=== PATIENT | female | born 1980 | race Caucasian/White ===

== ENCOUNTER → 2016-12-22 | Outpatient (CLI) | payer BC ==
[2016-12-22 10:20] LABS: CHLORIDE,CL 109 mmol/L (98-110); SODIUM,NA 142 mmol/L (136-146)
== END ==
LOC: MW.CHFP 09:14
PROVIDERS: ATTEND Physician Assistant
DX: Z00.00 Encounter for general adult medical examination without abnormal findings (principal); R53.83 Other fatigue
CPT/HCPCS: 36415; 80048; 80061; 83036; 84439; 84443; 84481; 85025

== ENCOUNTER → 2016-12-23 | Outpatient (CLI) | payer BC | LOC: MW.CHFP 08:42 | PROVIDERS: ATTEND Physician Assistant | DX: H53.9 Unspecified visual disturbance (principal) | CPT/HCPCS: 36415; 84445; 86376; 86800 ==

== ENCOUNTER → 2017-01-03 | Outpatient (CLI) | payer BC ==
[~2017-01-03] MED LIST: Gadobenate Dimeglumine 529 MG/ML 20 ML SDV IV ONE
--- NOTE | 2017-01-03 12:54 | US ---
EXAMINATION: Carotid US with mann scale and duplex imaging. HISTORY: Visual disturbance FINDINGS: Ultrasound examination of bilateral cervical carotid arteries was performed using mann scale and dup kevin imaging. No significant atheromatous plaque identified. Antegrade flow is noted within the emily tebral arteries. These are the peak velocities in cm per second (systole), right and left respectively, by a comma: CCA (common carotid artery) - 100, 103 ICA (internal carotid artery) - 115, 95 ECA (External carotid artery) - 106, 85 ICA/CCA systolic ratio Right - 1.2 Left - 1.4 IMPRESSION: No significant atheromatous disease or elevated velocities identified within the carotid arteries.
--- NOTE | 2017-01-03 16:36 | MR ---
EXAMINATION: MRI of the brain with and without contrast. TECHNIQUE: Multiplanar and multisequence imaging of the brain without and following 17 cc of Multih ance contrast. HISTORY: Sleep disorder. FINDINGS: Cerebral hemispheres and the deep nuclei are without hemorrhage, mass, edema, gliosis, enhancement o r atrophy. No extraaxial collections or hemorrhage. Ventricular system is of normal size and configuration without hydrocephalus. No evidence for globe flattening, small ventricles or partially empty sella to suggest pseudotumor cerebri. Brainstem and cerebellum are without hemorrhage, mass, edema, gliosis, enhancement or atrophy. Mccullough tid basilar artery flow voids are intact. The otomastoid airspaces are clear. No internal auditory canal or cerebellopontine angle masses or enhancement. No cranial neuritis. Paranasal sinuses are clear. Globes, optic nerves, orbital apices, optic chiasm, optic tracts, and visual cortices are unremarkable. Pituitary and sella turcica are unremarkable. No meningeal enhancement. No evidence of meningitis. Craniocervical junction is unremarkable. No siderosis or evidence of vascular malformation. The Calvarium is intact. IMPRESSION: 1. No abnormal intracranial findings.
--- NOTE | 2017-01-04 08:42 | US ---
EXAMINATION: Thyroid ultrasound HISTORY: Abnormal thyroid function studies COMPARISON: None TECHNIQUE: Grayscale and color Doppler images obtained of the thyroid gland. FINDINGS: The right thyroid lobe measures 4.2 x 1.4 x 1.5 cm and the left thyroid lobe measures 4.2 x 1.2 x 1.0 cm. The isthmus measures 2 mm. Both thyroid lobes appear mildly heterogeneous bilaterall y. There is a slightly hypoechoic area within the mid left thyroid lobe without discrete nodular bor ders. Overall this area measures 8 mm. IMPRESSION: 1. Mildly heterogeneous thyroid gland with an 8 mm nodule within the left thyroid lobe. Consider fol low-up in one year.
== END | disposition home or self-care (01) ==
LOC: MW.US 10:07
PROVIDERS: ATTEND Physician Assistant
DX: R94.6 Abnormal results of thyroid function studies (principal); E04.1 Nontoxic single thyroid nodule; H53.9 Unspecified visual disturbance; R53.83 Other fatigue; G47.9 Sleep disorder, unspecified
CPT/HCPCS: 76536; 93880; A9577; 70553; 70553-26

== ENCOUNTER → 2017-01-14 | Outpatient (CLI) | payer BC ==
--- NOTE | 2017-01-18 13:00 | ECHO ---
The echocardiogram report can be seen in this patient's EMR in the Reports section. VAMSHI
== END ==
LOC: MW.US 14:13
PROVIDERS: ATTEND Physician Assistant
DX: R55 Syncope and collapse (principal)
CPT/HCPCS: 93306

== ENCOUNTER 2020-02-06 22:16 | Emergency (ER) | payer BC ==
--- NOTE | 2020-02-06 22:37 | EDM.PDOC ---
ED HPI GENERAL MEDICAL PROBLEM - General Chief Complaint: Lower Extremity Injury/Pain Stated Complaint: LEFT ANKLE INJURY Time Seen by Provider: 02/06/20 22:24 Source of Information: Reports: Patient History Limitations: Reports: No Limitations - History of Present Illness INITIAL COMMENTS - FREE TEXT/NARRATIVE: History of present illness: [Patient is 39-year-old female presents with suspected sprained ankle involving the left ankle. She states that she was "digging a hole" when she fell and twisted her ankle and "heard a crack." Pain hurts worse with passive and active range of motion and weightbearing. Pain radiates up towards the knee. Denies any other injury or trauma associated with this fall. No chest pain, no shortness of breath, no loss of consciousness or head trauma. Used ice and took Advil prior to arrival.] Review of systems: As per history of present illness and below otherwise all systems reviewed and negative. Past medical history: As per history of present illness and as reviewed below otherwise noncontributory. Surgical history: As per history of present illness and as reviewed below otherwise noncontributory. Social history: No reported history of drug or alcohol abuse. Family history: As per history of present illness and as reviewed below otherwise noncontributory. Physical exam: General: Awake, alert, no acute distress, A&O X3. HEENT: Atraumatic, normocephalic, pupils reactive, negative for conjunctival pallor or scleral icterus, mucous membranes moist, throat clear, neck supple, nontender, trachea midline. Lungs: Clear to auscultation, breath sounds equal bilaterally, chest nontender. Heart: RRR, normal S1S2, no JVD. Abdomen: Soft, nondistended, nontender. Negative for masses or hepatosplenomegaly. Negative for costovertebral tenderness. Pelvis: Stable nontender. Genitourinary: Deferred. Rectal: Deferred. Extremities: mild tenderness to palpation of left lateral ankle, mild swelling. no obvious deformity or ecchymosis noted. Left foot is neurovascular intact with palpable pulses. Neuro: Motor and sensory grossly intact throughout. Exam nonfocal. Diagnostics: [] Therapeutics: [] Impression: [] Plan: [] Definitive disposition and diagnosis as appropriate pending reevaluation and review of above. L ankle Pain Score (Numeric/FACES): 7 - Related Data Allergies Allergy/AdvReac Type Severity Reaction Status Date / Time seafood Allergy Difficulty Uncoded 02/06/20 22:37 Breathing Home Meds: Home Meds Escitalopram [Lexapro] 5 mg PO DAILY 02/06/20 [History] Review of Systems - Review of Systems Review Of Systems: Comprehensive ROS is negative, except as noted in HPI. ED EXAM, GENERAL - Physical Exam Exam: See Below (see h and p) Course - Vital Signs Text/Narrative:: X-rays reassuring, no evidence for fracture, physical exam relatively benign, provided with an Aircast and crutches, encouraged to follow-up, gave ankle sprain instructions. Patient is well-appearing and nontoxic at the time of discharge. Last Recorded V/S: Last Vital Signs Temp 36.6 C 02/06/20 22:28 Pulse 95 02/06/20 22:28 Resp 17 02/06/20 22:28 BP 126/82 02/06/20 22:28 Pulse Ox 99 02/06/20 22:28 - Orders/Labs/Meds Orders: Active Orders 24 hr Category Date Time Status DME for Discharge [COMM] Stat Oth 02/06/20 23:29 Ordered Departure - Departure Time of Disposition: 23:32 Disposition: Home, Self-Care 01 Condition: Good Clinical Impression: Ankle sprain - Discharge Information Instructions: Ankle Sprain, [id number] Referrals: Ventura Power MD [Primary Care Provider] - Forms: ED Department Discharge Additional Instructions: The following information is given to patients seen in the emergency department who are being discharged to home. This information is to outline your options for follow-up care. We provide all patients seen in our emergency department with a follow-up referral. The need for follow-up, as well as the timing and circumstances, are variable depending upon the specifics of your emergency department visit. If you don't have a primary care physician on staff, we will provide you with a referral. We always advise you to contact your personal physician following an emergency department visit to inform them of the circumstance of the visit and for follow-up with them and/or the need for any referrals to a consulting specialist. The emergency department will also refer you to a specialist when appropriate. This referral assures that you have the opportunity for follow-up care with a specialist. All of these measure are taken in an effort to provide you with optimal care, which includes your follow-up. Under all circumstances we always encourage you to contact your private physician who remains a resource for coordinating your care. When calling for follow-up care, please make the office aware that this follow-up is from your recent emergency room visit. If for any reason you are refused follow-up, please contact the [facility] Emergency Department at and asked to speak to the emergency department charge nurse. Sepsis Event Note (ED) - Focused Exam Vital Signs: Vital Signs Temp Pulse Resp BP Pulse Ox 02/06/20 22:28 36.6 C 95 17 126/82 99 - My Orders Last 24 Hours: My Active Orders 02/06/20 23:29 DME for Discharge [COMM] Stat - Assessment/Plan Last 24 Hours: My Active Orders 02/06/20 23:29 DME for Discharge [COMM] Stat
--- NOTE | 2020-02-06 23:21 | CR ---
INDICATION: Pain after fall COMPARISON: None available. FINDINGS: AP and lateral views of the left tibia and fibula were obtained using portable technique at 22 37 hours. There is no sign of fracture, dislocation, or joint effusion. The soft tissues are normal in appearance without sign of radio-opaque foreign body. No significant degenerative disease is seen in the visualized portions of the knee and ankle. IMPRESSION: Normal two-view left tibia and fibula. Dictated by Dakota Stewart MD @ Feb 06 2020 11:19PM Signed by Dr. Dakota Stewart @ Feb 06 2020 11:20PM
--- NOTE | 2020-02-06 23:21 | CR ---
INDICATION: Pain after fall COMPARISON: None available. FINDINGS: AP, lateral and oblique views of the left ankle were obtained for a total of three views using portable technique at 22 39 hours. There is no sign of fracture or dislocation. The ankle mortise is intact. The talar dome is intact. There is no sign of a joint effusion. The soft tissues are normal in appearance with no sign of foreign body. No degenerative changes are seen. IMPRESSION: Normal left ankle. Dictated by Dakota Stewart MD @ Feb 06 2020 11:18PM Signed by Dr. Dakota Stewart @ Feb 06 2020 11:19PM
== END 2020-02-06 23:56 | disposition home or self-care (01) ==
LOC: MW.ED 22:16
DX: S93.402A Sprain of unspecified ligament of left ankle, initial encounter (principal); Z91.013 Allergy to seafood; Z79.899 Other long term (current) drug therapy; X50.1XXA Overexertion from prolonged static or awkward postures, initial encounter
CPT/HCPCS: 73590-26-LT; 73590-LT; 73610-26-LT; 73610-LT; 99283; 99283-25